=== PATIENT | male | born 1950 | race Caucasian/White ===

== ENCOUNTER 2017-05-22 08:48 | Inpatient (IN) | payer OTHER ==
[2017-05-22 09:25] VITALS: BMI 26.6
--- NOTE | 2017-05-22 17:33 | HP ---
COWS - Scale Resting Pulse: 2= [place] 101-120 Sweatin= Chills/Flushing Restless Observation: 3= Extraneous Movement Pupil Size: 0= Normal to Room Light Bone or Joint Aches: 4=Acute Joint/Muscle Pain Runny Nose/ Eye Tearin= Runny Nose/Eyes GI Upset > 30mins: 2= Nausea/Diarrhea Tremor Observation: 2= Slight Tremor Visible Yawning Observation: 1= 1-2x During Session Anxiety or Irritability: 2=Irritable/Anxious Goose Flesh Skin: 0=Smooth Skin COWS Score: 19 CIWA Score - CIWA Score Nausea/Vomitin (DIARRHEA) Muscle Tremors: 4-Moderate,w/Arms Extend Anxiety: 4-Mod. Anxious/Guarded Agitation: 3 Paroxysmal Sweats: 1-Minimal Palms Moist Orientation: 0-Oriented Tacttile Disturbances: 3-Moderate Itch/Numb/Burn Auditory Disturbances: 0-None Visual Disturbances: 0-None Headache: 0-None Present CIWA-Ar Total Score: 18 Admission ROS S - HPI Chief Complaint: DETOX TX FOR OPIATES AND XANAX WITHDRAWAL SX OF NAUSEA AND DIARRHEA, TREMORS WITH LACK OF ENERGY. Allergies/Adverse Reactions: Allergies Allergy/AdvReac Type Severity Reaction Status Date / Time No Known Allergies Allergy Verified 05/22/17 16:58 History of Present Illness: 66 Y/O MALE WITH A HX OF OPIOID AND XANAX DEPENDENCE SEEKING DETOX TX. PT REPORTS WAS ON [facility] AND WAS RAPIDLY DETOXED BUT STARTED WITHDRAWING VERY SEVERELY 2 DAYS AFTER AND WAS TAKEN BY AMBULANCE TO [facility] KEPT OVERNIGHT WITH HYDRATION TX AND REFERRED HERE FOR DETOX. ADDENDUM: DR ZHENG AT THE [facility] PSYCH TEAM CALLED TO REPORT THIS PATIENT WAS CLEARED PSYCHIATRICALLY. NO S/I BUT PT IN NEED OF DETOX DUE TO WITHDRAWAL SX. Exam Limitations: No Limitations - Ebola screening Have you traveled outside of the country in the last 21 days: No Have you had contact with anyone from an Ebola affected area: No Have you been sick,other than usual withdrawal symptoms: No - Review of Systems Constitutional: Chills, Loss of Appetite, Night Sweats, Changes in sleep EENT: reports: Blurred Vision (WEARS GLASSES), Dental Problems (MISSING TEETH), Other (DRY EYES) Respiratory: reports: Cough, Productive cough (YELLOW PHLEGM) Cardiac: reports: Lightheadedness GI: reports: Constipated, Diarrhea, Nausea, Poor Appetite, Poor Fluid Intake, Vomiting, Indigestion : reports: Dysuria Musculoskeletal: reports: Joint Pain, Muscle Pain Integumentary: reports: Bruising (LEFT FOREARM DUE TO FALL FROM CHAIR AT HOME LAST WEEK.), Rash (FUNGAL INFECTION RIGHT BIG TOE) Neuro: reports: Headache, Tremors, Unsteady Gait Endocrine: reports: No Symptoms Reported Psychiatric: reports: Orientated x3, Anxious, Depressed Other Systems: Reviewed and Negative Patient History - Patient Medical History Hx Anemia: No Hx Asthma: No Hx Chronic Obstructive Pulmonary Disease (COPD): No Hx Cardiac Disorders: No Hx Hypertension: No Hx Hypercholesterolemia: No HX Cerebrovascular Accident: No Hx Seizures: No Hx Diabetes: No Hx Gastrointestinal Disorders: Yes (GERD-NO MED) Hx Genitourinary Disorders: No Hx Sexually Transmitted Disorders: No Hx Renal Disease (ESRD): No Hx Thyroid Disease: No Hx Human Immunodeficiency Virus (HIV): No (NEGATIVE HX) Hx Hepatitis C: No (NEGATIVE) Hx Depression: Yes (ATIVAN WHEN YOUNGER) Hx Suicide Attempt: No (DENIES) Hx Schizophrenia: No Other Medical History: PANIC ATTACKS WHEN YOUNGER - Patient Surgical History Past Surgical History: Yes Hx Neurologic Surgery: No Hx Cataract Extraction: No Hx Cardiac Surgery: No Hx Lung Surgery: No Hx Breast Surgery: No Hx Breast Biopsy: No Hx Abdominal Surgery: No Hx Appendectomy: No Hx Cholecystectomy: No Hx Genitourinary Surgery: No Hx Orthopedic Surgery: No Anesthesia Reaction: No - PPD History Previous Implant?: Yes Documented Results: Negative w/o proof Implanted On Prior [facility] Admission?: No PPD to be Administered?: Yes - Reproductive History Patient is a Female of Child Bearing Age (11 -55 yrs old): No (MALE) Patient : (N/A) - Smoking Cessation Smoking history: Never smoked - Substance & Tx. History Hx Alcohol Use: Yes (IN REMISSION 15 YRS SOBER) Hx Substance Use: Yes (RX METHADONE/ STREETXANAX) Substance Use Type: Opiates, Tranquilizers Hx Substance Use Treatment: Yes - Substances Abused Alprazolam (Xanax) Route: Oral Frequency: Daily Amount used: 2-3mg Age of first use: 56 Date of Last Use: 05/21/17 Family Disease History - Family Disease History Family Disease History: Other: Father (HTN;IL-) Admission Physical Exam [facility] - Vital Signs Vital Signs: Vital Signs - 24 hr 05/22/17 09:23 Temperature 97.1 F L Pulse Rate 115 H Respiratory 20 Rate Blood Pressure 143/86 - Physical General Appearance: Yes: Moderate Distress, Irritable, Anxious, Other (FATIGUE) HEENTM: Yes: EOMI, Normocephalic, IDALIA, Pharynx Normal, Nasal Congestion, Rhinorrhea Respiratory: Yes: Chest Non-Tender, Lungs Clear, Normal Breath Sounds, No Respiratory Distress Neck: Yes: Supple, Trachea in good position Breast: Yes: Breast Exam Deferred Cardiology: Yes: Regular Rhythm, Regular Rate, S1, S2 Abdominal: Yes: Normal Bowel Sounds, Non Tender, Soft Genitourinary: Yes: Other (N/C) Musculoskeletal: Yes: full range of Motion, Gait Steady Extremities: Yes: Tremors 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: 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: 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 NML intact, Fully Oriented, Alert, Motor Strength 5/5 Integumentary: Yes: Dry, Warm Lymphatic: Yes: Within Normal Limits - Diagnostic (1) Opioid dependence with withdrawal Current Visit: Yes Status: Acute (2) Sedative, hypnotic or anxiolytic dependence with withdrawal, uncomplicated Current Visit: Yes Status: Acute (3) GERD (gastroesophageal reflux disease) Current Visit: Yes Status: Chronic Qualifiers: Esophagitis presence: without esophagitis Qualified Code(s): K21.9 - Gastro-esophageal reflux disease without esophagitis (4) Depression with anxiety Current Visit: Yes Status: Chronic Cleared for Admission [facility] - Detox or Rehab [facility] Level of Care: Medically Managed Detox Regimen/Protocol: Methadone/Valium [facility] Breath Alcohol Content Breath Alcohol Content: 0 Urine Drug Screen - Results Drug Screen Negative: No Urine Drug Screen Results: BZO-Benzodiazepines, MTD-Methadone
[2017-05-22] MEDS ORDERED: P-EPHED 60MG/TRIPROLIDI 2.5MG TABLET PO PRN (17:59)
[2017-05-22] MEDS ORDERED: MENTHOL/PHENOL 1 EACH UD MM PRN (17:59)
[2017-05-22] MEDS ORDERED: LOPERAMIDE HCL 2 MG CAPSULE PO PRN (17:59)
[2017-05-22] MEDS ORDERED: MAGNESIUM CITRATE 300 ML BOTTLE PO PRN (17:59)
[2017-05-22] MEDS ORDERED: MAG HYDROX/AL HYDROX/SIMETH 30 ML UNIT-DOSE CUP PO PRN (17:59)
[2017-05-22] MEDS ORDERED: MAGNESIUM HYDROX 2400MG/30ML ORAL SUSPENSION 30 ML CUP PO PRN (17:59)
[2017-05-22] MEDS ORDERED: diazePAM 5 MG TABLET PO ONE (17:59)
[2017-05-22] MEDS ORDERED: ONDANSETRON *ODT* 4 MG TABLET SL PRN (18:03)
[2017-05-22] MEDS ORDERED: METHADONE HCL 10 MG TABLET (FOR DETOX USE ONLY) PO ONE ×2 (18:45→23:00)
[2017-05-22] MEDS: THIAMINE HCL 100 MG TABLET (FP) PO SCH (21:36)
[2017-05-22] MEDS: ASPIRIN 81 MG CHEWABLE TABLETS PO SCH (21:42)
[2017-05-22] MEDS ORDERED: METHADONE HCL 10 MG TABLET (FOR DETOX USE ONLY) ONE (22:01)
[2017-05-22] MEDS: diphenhydrAMINE HCL 50 MG CAPSULE PO PRN (22:44)
[2017-05-22] MEDS: diazePAM 5 MG TABLET PO SCH (22:44)
[2017-05-23] MEDS: diazePAM 5 MG TABLET PO SCH ×3 (05:43→22:40)
[2017-05-23] MEDS: guaiFENesin/D-METHORPHAN HB 10 ML UNIT-DOSE CUPS PO PRN ×3 (05:43→21:14)
[2017-05-23] MEDS: ACETAMINOPHEN 325 MG TABLET (FP) PO PRN (09:05)
[2017-05-23] MEDS: ASPIRIN 81 MG CHEWABLE TABLETS PO SCH (09:25)
[2017-05-23] MEDS: PRENATAL VITAMINS W/ FOLIC ACID TABLET (FP) PO SCH (09:25)
[2017-05-23] MEDS: diazePAM 5 MG TABLET PO PRN ×2 (09:25→17:28)
[2017-05-23] MEDS: PANTOPRAZOLE 40 MG TABLET (FP) PO SCH (09:25)
[2017-05-23] MEDS ORDERED: METHADONE HCL 10 MG TABLET (FOR DETOX USE ONLY) PO SCH (10:00)
[2017-05-23 10:16] LABS: MCH 27.6 pg (25.7-33.7); MCHC 32.7 g/dl (32.0-35.9); MEAN CELL VOLUME 84.4 fl (80-96); MEAN PLT VOLUME 8.8 fl (7.5-11.1); PLATELET COUNT 239 K/MM3 (134-434); WHITE BLOOD COUNT 9.8 K/mm3 (4.0-10.0)
[2017-05-23 10:45] LABS: ALBUMIN 3.2 g/dl (3.4-5.0); ALK PHOS 38 U/L (45-117); ANION GAP 8 (8-16); BILIRUBIN,TOTAL 0.5 mg/dL (0.2-1.0); CALCIUM 8.4 mg/dL (8.5-10.1); CO2 27 mmol/L (21-32); GLUCOSE,RANDOM 88 mg/dL (74-106); SGOT/AST 9 U/L (15-37); SGPT/ALT 13 U/L (12-78); TOT PROT 6.6 g/dl (6.4-8.2)
--- NOTE | 2017-05-23 11:20 | PN ---
[facility] CIWA - CIWA Score Nausea/Vomitin-No Nausea/No Vomiting Muscle Tremors: 4-Moderate,w/Arms Extend Anxiety: 4-Mod. Anxious/Guarded Agitation: 4-Moderately Restless Paroxysmal Sweats: 1-Minimal Palms Moist Orientation: 0-Oriented Tacttile Disturbances: 3-Moderate Itch/Numb/Burn Auditory Disturbances: 0-None Visual Disturbances: 0-None Headache: 3-Moderate CIWA-Ar Total Score: 19 BHS COWS - Scale Resting Pulse: 2= [place] 101-120 Sweatin= Chills/Flushing Restless Observation: 3= Extraneous Movement Pupil Size: 0= Normal to Room Light Bone or Joint Aches: 4=Acute Joint/Muscle Pain Runny Nose/ Eye Tearin= Nasal Congestion GI Upset > 30mins: 2= Nausea/Diarrhea Tremor Observation of Outstretched Hands: 2= Slight Tremor Visible Yawning Observation: 1= 1-2x During Session Anxiety or Irritability: 2=Irritable/Anxious Goose Flesh Skin: 0=Smooth Skin COWS Score: 18 [facility] Progress Note (SOAP) Subjective: ANXIETY,SWEATS/CHILLS,HEADACHE,DIARRHEA, TREMORS,INTERMITTENT SLEEP Objective: 05/23/17 11:19 Vital Signs Temperature 97.2 F L 05/23/17 09:32 Pulse Rate 133 H 05/23/17 09:32 Respiratory Rate 18 05/23/17 09:32 Blood Pressure 156/83 05/23/17 09:32 O2 Sat by Pulse Oximetry (%) Laboratory Last Values WBC 9.8 K/mm3 (4.0-10.0) 05/23/17 07:00 RBC 4.55 M/mm3 (4.00-5.60) 05/23/17 07:00 Hgb 12.6 GM/dL (11.7-16.9) 05/23/17 07:00 Hct 38.4 % (35.4-49) 05/23/17 07:00 MCV 84.4 fl (80-96) 05/23/17 07:00 MCH 27.6 pg (25.7-33.7) 05/23/17 07:00 MCHC 32.7 g/dl (32.0-35.9) 05/23/17 07:00 RDW 15.0 % (11.9-15.9) 05/23/17 07:00 Plt Count 239 K/MM3 (134-434) 05/23/17 07:00 MPV 8.8 fl (7.5-11.1) 05/23/17 07:00 Sodium 145 mmol/L (136-145) 05/23/17 07:00 Potassium 4.1 mmol/L (3.5-5.1) 05/23/17 07:00 Chloride 110 mmol/L (98-107) H 05/23/17 07:00 Carbon Dioxide 27 mmol/L (21-32) 05/23/17 07:00 Anion Gap 8 (8-16) 05/23/17 07:00 BUN 18 mg/dL (7-18) 05/23/17 07:00 Creatinine 1.0 mg/dL (0.7-1.3) 05/23/17 07:00 Creat Clearance w eGFR > 60 (>60) 05/23/17 07:00 Random Glucose 88 mg/dL (74-106) 05/23/17 07:00 Calcium 8.4 mg/dL (8.5-10.1) L 05/23/17 07:00 Total Bilirubin 0.5 mg/dL (0.2-1.0) 05/23/17 07:00 AST 9 U/L (15-37) L 05/23/17 07:00 ALT 13 U/L (12-78) 05/23/17 07:00 Alkaline Phosphatase 38 U/L (45-117) L 05/23/17 07:00 Total Protein 6.6 g/dl (6.4-8.2) 05/23/17 07:00 Albumin 3.2 g/dl (3.4-5.0) L 05/23/17 07:00 OTHER LABS PENDING Assessment: 05/23/17 11:19 WITHDRAWAL SX Plan: CONTINUE DETOX IMODIUM PRN INCREASE PO FLUIDS TOLERATED
--- NOTE | 2017-05-23 11:27 | CONSULT ---
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 Smoking Cessation. Smoking history: Never smoked. - Substance & Tx. History. Hx Alcohol Use: Yes (IN REMISSION 15 YRS SOBER). Hx Substance Use: Yes (RX METHADONE/ STREETXANAX). Substance Use Type: Opiates, Tranquilizers. Hx Substance Use Treatment: Yes. - Substances Abused. Alprazolam (Xanax). Route: Oral. Frequency: Daily. Amount used: 2-3mg. Age of first use: 56. Date of Last Use: 05/21/17 Medical History: GERD and arthritis. Psychiatric History: Patient denies history of psychiatric hospitalizations.Used to be on methadone maintenance (60 mg/day) at the [facility].Heavily involved in buying xanax from the streets.No history of psychiatric OPD care.Denies history of suicide attempts. Physical/Sexual Abuse/Trauma History: Patient denies. Additional Comment: Urine Drug Screen Results: BZO-Benzodiazepines, MTD- Methadone.Noted. Mental Status Exam - Mental Status Exam Alert and Oriented to: Time, Place, Person Cognitive Function: Good Patient Appearance: Well Groomed Mood: Nervous, Apprehensive Affect: Mood Congruent Patient Behavior: Fatigued, Appropriate, Cooperative Speech Pattern: Clear Voice Loudness: Normal Thought Process: Intact, Goal Oriented Thought Disorder: Not Present Hallucinations: Denies Suicidal Ideation: Denies Homicidal Ideation: Denies Insight/Judgement: Poor Sleep: Poorly, Difficulty falling asleep Appetite: Good Muscle strength/Tone: Normal Gait/Station: Normal Psychiatric Findings - Problem List ([place] 1, 2,3) (1) Opioid dependence with withdrawal Current Visit: Yes Status: Acute (2) Sedative, hypnotic or anxiolytic dependence with withdrawal, uncomplicated Current Visit: Yes Status: Acute (3) Substance induced mood disorder Current Visit: Yes Status: Acute (4) GERD (gastroesophageal reflux disease) Current Visit: Yes Status: Chronic Qualifiers: Esophagitis presence: without esophagitis Qualified Code(s): K21.9 - Gastro-esophageal reflux disease without esophagitis (5) Insomnia Current Visit: Yes Status: Acute - Initial Treatment Plan Initial Treatment Plan: Psychoeducation.Detoxification.Ambien 5 mg po hs prn.Patient made aware of potential for parasomnias.
[2017-05-23] MEDS ORDERED: cloNIDine HCL 0.1 MG TABLET PO ONE (12:00)
[2017-05-23 17:35] LABS: URINE APPEARANCE SLCLOUDY; URINE BILIRUBIN NEGATIVE (NEGATIVE); URINE BLOOD NEGATIVE (NEGATIVE); URINE COLOR YELLOW; URINE GLUCOSE (UA) NEGATIVE (NEGATIVE); URINE KETONE TRACE (NEGATIVE); URINE LEUK ESTERASE NEGATIVE (NEGATIVE); URINE NITRITE NEGATIVE (NEGATIVE); URINE PROTEIN NEGATIVE (NEGATIVE); URINE UROBILINOGEN NEGATIVE mg/dL (0.2-1.0)
[2017-05-23] MEDS: THIAMINE HCL 100 MG TABLET (FP) PO SCH (22:40)
[2017-05-23] MEDS: cloNIDine HCL 0.1 MG TABLET PO SCH (22:41)
[2017-05-23] MEDS: ZOLPIDEM TARTRATE 5 MG TABLET PO PRN (22:44)
[2017-05-24] MEDS: ACETAMINOPHEN 325 MG TABLET (FP) PO PRN ×3 (05:47→17:32)
[2017-05-24] MEDS: guaiFENesin/D-METHORPHAN HB 10 ML UNIT-DOSE CUPS PO PRN ×3 (05:48→19:19)
[2017-05-24] MEDS: diazePAM 5 MG TABLET PO PRN ×2 (05:48→17:09)
[2017-05-24] MEDS: PRENATAL VITAMINS W/ FOLIC ACID TABLET (FP) PO SCH (10:51)
[2017-05-24] MEDS: diazePAM 5 MG TABLET PO SCH ×2 (10:51→22:47)
[2017-05-24] MEDS: PANTOPRAZOLE 40 MG TABLET (FP) PO SCH (10:51)
[2017-05-24] MEDS: cloNIDine HCL 0.1 MG TABLET PO SCH ×2 (10:51→22:47)
[2017-05-24] MEDS: ASPIRIN 81 MG CHEWABLE TABLETS PO SCH (10:51)
[2017-05-24] MEDS: METHADONE HCL 5 MG TABLET (FOR DETOX USE ONLY) PO SCH (11:08)
--- NOTE | 2017-05-24 12:22 | PN ---
[facility] CIWA - CIWA Score Nausea/Vomitin-No Nausea/No Vomiting Muscle Tremors: 4-Moderate,w/Arms Extend Anxiety: 4-Mod. Anxious/Guarded Agitation: 4-Moderately Restless Paroxysmal Sweats: 1-Minimal Palms Moist Orientation: 0-Oriented Tacttile Disturbances: 3-Moderate Itch/Numb/Burn Auditory Disturbances: 0-None Visual Disturbances: 0-None Headache: 1-Very Mild CIWA-Ar Total Score: 17 BHS COWS - Scale Resting Pulse: 1= [place] 81-100 Sweatin= Chills/Flushing Restless Observation: 3= Extraneous Movement Pupil Size: 2= Moderately Dilated Bone or Joint Aches: 4=Acute Joint/Muscle Pain Runny Nose/ Eye Tearin= Nasal Congestion GI Upset > 30mins: 1= Stomach Cramp Tremor Observation of Outstretched Hands: 2= Slight Tremor Visible Yawning Observation: 1= 1-2x During Session Anxiety or Irritability: 2=Irritable/Anxious Goose Flesh Skin: 0=Smooth Skin COWS Score: 18 S Progress Note (SOAP) Subjective: ANXIETY,IRRITABILITY, RESTLESSNESS,NASAL CONGESTIONS, FATIGUE. Objective: 05/24/17 12:21 Vital Signs Temperature 96.4 F L 05/24/17 10:16 Pulse Rate 100 H 05/24/17 10:16 Respiratory Rate 18 05/24/17 10:16 Blood Pressure 139/80 05/24/17 10:16 O2 Sat by Pulse Oximetry (%) Laboratory Last Values WBC 9.8 K/mm3 (4.0-10.0) 05/23/17 07:00 RBC 4.55 M/mm3 (4.00-5.60) 05/23/17 07:00 Hgb 12.6 GM/dL (11.7-16.9) 05/23/17 07:00 Hct 38.4 % (35.4-49) 05/23/17 07:00 MCV 84.4 fl (80-96) 05/23/17 07:00 MCH 27.6 pg (25.7-33.7) 05/23/17 07:00 MCHC 32.7 g/dl (32.0-35.9) 05/23/17 07:00 RDW 15.0 % (11.9-15.9) 05/23/17 07:00 Plt Count 239 K/MM3 (134-434) 05/23/17 07:00 MPV 8.8 fl (7.5-11.1) 05/23/17 07:00 Sodium 145 mmol/L (136-145) 05/23/17 07:00 Potassium 4.1 mmol/L (3.5-5.1) 05/23/17 07:00 Chloride 110 mmol/L (98-107) H 05/23/17 07:00 Carbon Dioxide 27 mmol/L (21-32) 05/23/17 07:00 Anion Gap 8 (8-16) 05/23/17 07:00 BUN 18 mg/dL (7-18) 05/23/17 07:00 Creatinine 1.0 mg/dL (0.7-1.3) 05/23/17 07:00 Creat Clearance w eGFR > 60 (>60) 05/23/17 07:00 Random Glucose 88 mg/dL (74-106) 05/23/17 07:00 Calcium 8.4 mg/dL (8.5-10.1) L 05/23/17 07:00 Total Bilirubin 0.5 mg/dL (0.2-1.0) 05/23/17 07:00 AST 9 U/L (15-37) L 05/23/17 07:00 ALT 13 U/L (12-78) 05/23/17 07:00 Alkaline Phosphatase 38 U/L (45-117) L 05/23/17 07:00 Total Protein 6.6 g/dl (6.4-8.2) 05/23/17 07:00 Albumin 3.2 g/dl (3.4-5.0) L 05/23/17 07:00 Urine Color Yellow 05/23/17 14:00 Urine Appearance Slcloudy 05/23/17 14:00 Urine pH 5.0 (5.0-8.0) 05/23/17 14:00 Ur Specific [place] 1.020 (1.005-1.025) 05/23/17 14:00 Urine Protein Negative (NEGATIVE) 05/23/17 14:00 Urine Glucose (UA) Negative (NEGATIVE) 05/23/17 14:00 Urine Ketones Trace (NEGATIVE) H 05/23/17 14:00 Urine Blood Negative (NEGATIVE) 05/23/17 14:00 Urine Nitrite Negative (NEGATIVE) 05/23/17 14:00 Urine Bilirubin Negative (NEGATIVE) 05/23/17 14:00 Urine Urobilinogen Negative mg/dL (0.2-1.0) 05/23/17 14:00 Ur Leukocyte Esterase Negative (NEGATIVE) 05/23/17 14:00 RPR Titer Nonreactive (NONREACTIVE) 05/23/17 07:00 Assessment: 05/24/17 12:21 WITHDRAWAL SX Plan: CONTINUE DETOX
--- NOTE | 2017-05-24 12:42 | EKG ---
Test Reason : Blood Pressure : / mmHG Vent. Rate : 078 BPM Atrial Rate : 078 BPM P-R Int : 170 ms QRS Dur : 086 ms QT Int : 380 ms P-R-T Axes : 040 022 040 degrees QTc Int : 433 ms SINUS RHYTHM WITH PREMATURE ATRIAL COMPLEXES OTHERWISE NORMAL ECG WHEN COMPARED WITH ECG OF 22-MAY-2017 20:41, PREMATURE ATRIAL COMPLEXES ARE NOW PRESENT Confirmed by NUNO ALSTON, GRAHAM ([id number]) on 05/24/2017 12:42:41 PM Referred By: Confirmed By:GRAHAM REINA MD
[2017-05-24] MEDS: ZOLPIDEM TARTRATE 5 MG TABLET PO PRN (22:47)
[2017-05-24] MEDS: THIAMINE HCL 100 MG TABLET (FP) PO SCH (22:47)
[2017-05-25] MEDS: guaiFENesin/D-METHORPHAN HB 10 ML UNIT-DOSE CUPS PO PRN ×2 (05:41→15:36)
[2017-05-25] MEDS: diazePAM 5 MG TABLET PO PRN ×2 (05:41→16:58)
[2017-05-25] MEDS: ACETAMINOPHEN 325 MG TABLET (FP) PO PRN (05:42)
[2017-05-25] MEDS: PANTOPRAZOLE 40 MG TABLET (FP) PO SCH (10:35)
[2017-05-25] MEDS: METHADONE HCL 5 MG TABLET (FOR DETOX USE ONLY) PO SCH (10:35)
[2017-05-25] MEDS: cloNIDine HCL 0.1 MG TABLET PO SCH ×2 (10:35→22:33)
[2017-05-25] MEDS: diazePAM 5 MG TABLET PO SCH ×2 (10:35→22:33)
[2017-05-25] MEDS: PRENATAL VITAMINS W/ FOLIC ACID TABLET (FP) PO SCH (10:35)
[2017-05-25] MEDS: ASPIRIN 81 MG CHEWABLE TABLETS PO SCH (10:35)
[2017-05-25] MEDS: IBUPROFEN 400 MG TABLET (FP) PO PRN (10:38)
--- NOTE | 2017-05-25 11:25 | PN ---
S Progress Note (SOAP) Subjective: ANXIETY,SWEATS,HEADACHES Objective: 05/25/17 11:24 Vital Signs Temperature 98.3 F 05/25/17 09:07 Pulse Rate 89 05/25/17 09:07 Respiratory Rate 18 05/25/17 09:07 Blood Pressure 147/76 05/25/17 09:07 O2 Sat by Pulse Oximetry (%) Laboratory Last Values WBC 9.8 K/mm3 (4.0-10.0) 05/23/17 07:00 RBC 4.55 M/mm3 (4.00-5.60) 05/23/17 07:00 Hgb 12.6 GM/dL (11.7-16.9) 05/23/17 07:00 Hct 38.4 % (35.4-49) 05/23/17 07:00 MCV 84.4 fl (80-96) 05/23/17 07:00 MCH 27.6 pg (25.7-33.7) 05/23/17 07:00 MCHC 32.7 g/dl (32.0-35.9) 05/23/17 07:00 RDW 15.0 % (11.9-15.9) 05/23/17 07:00 Plt Count 239 K/MM3 (134-434) 05/23/17 07:00 MPV 8.8 fl (7.5-11.1) 05/23/17 07:00 Sodium 145 mmol/L (136-145) 05/23/17 07:00 Potassium 4.1 mmol/L (3.5-5.1) 05/23/17 07:00 Chloride 110 mmol/L (98-107) H 05/23/17 07:00 Carbon Dioxide 27 mmol/L (21-32) 05/23/17 07:00 Anion Gap 8 (8-16) 05/23/17 07:00 BUN 18 mg/dL (7-18) 05/23/17 07:00 Creatinine 1.0 mg/dL (0.7-1.3) 05/23/17 07:00 Creat Clearance w eGFR > 60 (>60) 05/23/17 07:00 Random Glucose 88 mg/dL (74-106) 05/23/17 07:00 Calcium 8.4 mg/dL (8.5-10.1) L 05/23/17 07:00 Total Bilirubin 0.5 mg/dL (0.2-1.0) 05/23/17 07:00 AST 9 U/L (15-37) L 05/23/17 07:00 ALT 13 U/L (12-78) 05/23/17 07:00 Alkaline Phosphatase 38 U/L (45-117) L 05/23/17 07:00 Total Protein 6.6 g/dl (6.4-8.2) 05/23/17 07:00 Albumin 3.2 g/dl (3.4-5.0) L 05/23/17 07:00 Urine Color Yellow 05/23/17 14:00 Urine Appearance Slcloudy 05/23/17 14:00 Urine pH 5.0 (5.0-8.0) 05/23/17 14:00 Ur Specific [place] 1.020 (1.005-1.025) 05/23/17 14:00 Urine Protein Negative (NEGATIVE) 05/23/17 14:00 Urine Glucose (UA) Negative (NEGATIVE) 05/23/17 14:00 Urine Ketones Trace (NEGATIVE) H 05/23/17 14:00 Urine Blood Negative (NEGATIVE) 05/23/17 14:00 Urine Nitrite Negative (NEGATIVE) 05/23/17 14:00 Urine Bilirubin Negative (NEGATIVE) 05/23/17 14:00 Urine Urobilinogen Negative mg/dL (0.2-1.0) 05/23/17 14:00 Ur Leukocyte Esterase Negative (NEGATIVE) 05/23/17 14:00 RPR Titer Nonreactive (NONREACTIVE) 05/23/17 07:00 Assessment: 05/25/17 11:25 WITHDRAWAL SX Plan: CONTINUE DETOX
--- NOTE | 2017-05-25 11:36 | EKG ---
Test Reason : Blood Pressure : / mmHG Vent. Rate : 094 BPM Atrial Rate : 094 BPM P-R Int : 162 ms QRS Dur : 072 ms QT Int : 342 ms P-R-T Axes : 035 -03 048 degrees QTc Int : 427 ms NORMAL SINUS RHYTHM MODERATE VOLTAGE CRITERIA FOR LVH, MAY BE NORMAL VARIANT NONSPECIFIC ST ABNORMALITY ABNORMAL ECG NO PREVIOUS ECGS AVAILABLE Confirmed by GERMAINE GARCIA MD ([id number]) on 05/25/2017 11:35:46 AM Referred By: Confirmed By:GERMAINE GARCIA MD
[2017-05-25] MEDS: ZOLPIDEM TARTRATE 5 MG TABLET PO PRN (22:33)
[2017-05-25] MEDS: THIAMINE HCL 100 MG TABLET (FP) PO SCH (22:33)
[2017-05-26] MEDS: IBUPROFEN 400 MG TABLET (FP) PO PRN ×2 (04:38→19:01)
[2017-05-26] MEDS ORDERED: METHADONE HCL 10 MG TABLET (FOR DETOX USE ONLY) PO SCH (10:00)
[2017-05-26] MEDS ORDERED: diazePAM 5 MG TABLET PO SCH (10:00)
[2017-05-26] MEDS: ASPIRIN 81 MG CHEWABLE TABLETS PO SCH (10:10)
[2017-05-26] MEDS: cloNIDine HCL 0.1 MG TABLET PO SCH ×2 (10:11→22:37)
[2017-05-26] MEDS: PANTOPRAZOLE 40 MG TABLET (FP) PO SCH (10:11)
[2017-05-26] MEDS: PRENATAL VITAMINS W/ FOLIC ACID TABLET (FP) PO SCH (10:11)
[2017-05-26] MEDS ORDERED: hydrOXYzine PAMOATE 50 MG CAPSULE (FP) PO PRN (11:02)
--- NOTE | 2017-05-26 11:46 | PN ---
S Progress Note (SOAP) Subjective: ANXIETY,IRRITABILITY,SWEATS,INTERMITTENT SLEEP Objective: 05/26/17 11:45 Laboratory Last Values WBC 9.8 K/mm3 (4.0-10.0) 05/23/17 07:00 RBC 4.55 M/mm3 (4.00-5.60) 05/23/17 07:00 Hgb 12.6 GM/dL (11.7-16.9) 05/23/17 07:00 Hct 38.4 % (35.4-49) 05/23/17 07:00 MCV 84.4 fl (80-96) 05/23/17 07:00 MCH 27.6 pg (25.7-33.7) 05/23/17 07:00 MCHC 32.7 g/dl (32.0-35.9) 05/23/17 07:00 RDW 15.0 % (11.9-15.9) 05/23/17 07:00 Plt Count 239 K/MM3 (134-434) 05/23/17 07:00 MPV 8.8 fl (7.5-11.1) 05/23/17 07:00 Sodium 145 mmol/L (136-145) 05/23/17 07:00 Potassium 4.1 mmol/L (3.5-5.1) 05/23/17 07:00 Chloride 110 mmol/L (98-107) H 05/23/17 07:00 Carbon Dioxide 27 mmol/L (21-32) 05/23/17 07:00 Anion Gap 8 (8-16) 05/23/17 07:00 BUN 18 mg/dL (7-18) 05/23/17 07:00 Creatinine 1.0 mg/dL (0.7-1.3) 05/23/17 07:00 Creat Clearance w eGFR > 60 (>60) 05/23/17 07:00 Random Glucose 88 mg/dL (74-106) 05/23/17 07:00 Calcium 8.4 mg/dL (8.5-10.1) L 05/23/17 07:00 Total Bilirubin 0.5 mg/dL (0.2-1.0) 05/23/17 07:00 AST 9 U/L (15-37) L 05/23/17 07:00 ALT 13 U/L (12-78) 05/23/17 07:00 Alkaline Phosphatase 38 U/L (45-117) L 05/23/17 07:00 Total Protein 6.6 g/dl (6.4-8.2) 05/23/17 07:00 Albumin 3.2 g/dl (3.4-5.0) L 05/23/17 07:00 Urine Color Yellow 05/23/17 14:00 Urine Appearance Slcloudy 05/23/17 14:00 Urine pH 5.0 (5.0-8.0) 05/23/17 14:00 Ur Specific [place] 1.020 (1.005-1.025) 05/23/17 14:00 Urine Protein Negative (NEGATIVE) 05/23/17 14:00 Urine Glucose (UA) Negative (NEGATIVE) 05/23/17 14:00 Urine Ketones Trace (NEGATIVE) H 05/23/17 14:00 Urine Blood Negative (NEGATIVE) 05/23/17 14:00 Urine Nitrite Negative (NEGATIVE) 05/23/17 14:00 Urine Bilirubin Negative (NEGATIVE) 05/23/17 14:00 Urine Urobilinogen Negative mg/dL (0.2-1.0) 05/23/17 14:00 Ur Leukocyte Esterase Negative (NEGATIVE) 05/23/17 14:00 RPR Titer Nonreactive (NONREACTIVE) 05/23/17 07:00 Vital Signs 05/26/17 05/26/17 05/26/17 04:05 06:42 10:00 Temperature 97.6 F 97.2 F L Pulse Rate 73 85 Respiratory 18 18 18 Rate Blood Pressure 153/85 134/81 Assessment: 05/26/17 11:46 WITHDRAWAL SX Plan: CONTINUE DETOX
[2017-05-26] MEDS: THIAMINE HCL 100 MG TABLET (FP) PO SCH (22:37)
[2017-05-26] MEDS: ZOLPIDEM TARTRATE 5 MG TABLET PO PRN (22:37)
[2017-05-26] MEDS: diphenhydrAMINE HCL 50 MG CAPSULE PO PRN (22:38)
[2017-05-27] MEDS: IBUPROFEN 400 MG TABLET (FP) PO PRN (05:31)
[2017-05-27] MEDS ORDERED: METHADONE HCL 5 MG TABLET (FOR DETOX USE ONLY) PO SCH (06:00)
[2017-05-27] MEDS: cloNIDine HCL 0.1 MG TABLET PO SCH (10:32)
[2017-05-27] MEDS: PANTOPRAZOLE 40 MG TABLET (FP) PO SCH (10:32)
[2017-05-27] MEDS: PRENATAL VITAMINS W/ FOLIC ACID TABLET (FP) PO SCH (10:32)
[2017-05-27] MEDS: ASPIRIN 81 MG CHEWABLE TABLETS PO SCH (10:32)
[2017-05-27 11:05] VITALS: BP 157/78; PULSE 98; TEMP 97.3
--- NOTE | 2017-05-27 19:22 | DS ---
[facility] Detox Discharge Summary Admission Date: 05/22/17 Discharge Date: 05/27/17 - History Present History: Opioid Dependence, Sedative Dependence Additional Comments: PATIENT ELECTING TO GO HOME AT THIS TIME. TRANSPORTATION ARRANGED BY NURSING EMAIL PRODUCTION SPECIALIST [employer] FOR PATIENT TO BE TAKEN FROM HOSPITAL DIRECTLY TO HIS HOME. PATIENT ADVISED TO FOLLOW-UP WITH HIS QUILT MAKER IN THE [facility] (PATIENT UNABLE TO RECALL QUILT MAKER'S NAME AT THIS TIME) FOR MEDICAL EVALUATION AFTER DISCHARGE FROM DETOX. PATIENT ALSO ADVISED TO CONSIDER LOCAL OUTPATIENT 12 -STEP / NA PROGRAMS FOR AFTERCARE AFTER DISCHARGE FROM DETOX. PATIENT WAS DISCHARGED FROM UNIT IN STABLE MEDICAL CONDITION. Pertinent Past History: Depression / Anxiety, G.E.R.D., Insomnia. - Physical Exam Results Vital Signs: Vital Signs Temperature 97.3 F L 05/27/17 11:05 Pulse Rate 98 H 05/27/17 11:05 Respiratory Rate 18 05/27/17 11:05 Blood Pressure 157/78 05/27/17 11:05 O2 Sat by Pulse Oximetry (%) Pertinent Admission Physical Exam Findings: WITHDRAWAL SYMPTOMS. Laboratory Tests 05/23/17 05/23/17 05/23/17 07:00 07:00 07:00 WBC 9.8 RBC 4.55 Hgb 12.6 Hct 38.4 MCV 84.4 MCH 27.6 MCHC 32.7 RDW 15.0 Plt Count 239 MPV 8.8 Sodium 145 Potassium 4.1 Chloride 110 H Carbon Dioxide 27 Anion Gap 8 BUN 18 Creatinine 1.0 Creat Clearance w eGFR > 60 Random Glucose 88 Calcium 8.4 L Total Bilirubin 0.5 AST 9 L ALT 13 Alkaline Phosphatase 38 L Total Protein 6.6 Albumin 3.2 L Urine Color Urine Appearance Urine pH Ur Specific [place] Urine Protein Urine Glucose (UA) Urine Ketones Urine Blood Urine Nitrite Urine Bilirubin Urine Urobilinogen Ur Leukocyte Esterase RPR Titer Nonreactive 05/23/17 14:00 WBC RBC Hgb Hct MCV MCH MCHC RDW Plt Count MPV Sodium Potassium Chloride Carbon Dioxide Anion Gap BUN Creatinine Creat Clearance w eGFR Random Glucose Calcium Total Bilirubin AST ALT Alkaline Phosphatase Total Protein Albumin Urine Color Yellow Urine Appearance Slcloudy Urine pH 5.0 Ur Specific [place] 1.020 Urine Protein Negative Urine Glucose (UA) Negative Urine Ketones Trace H Urine Blood Negative Urine Nitrite Negative Urine Bilirubin Negative Urine Urobilinogen Negative Ur Leukocyte Esterase Negative RPR Titer LABS NOTED. - Treatment Hospital Course: Detox Protocol Followed, Detoxed Safely, Responded well, Discharged Condition Good Patient has Accepted a Rehab Referral to: PT ELECTS TO GO HOME. ADVISED TO CONSIDER LOCAL 12-STEP/NA PROGRAMS FOR F/U - Medication Discharge Medications: Ambulatory Orders Aspirin [ASA -] 81 mg PO DAILY 05/22/17 - Diagnosis (1) Insomnia Status: Acute Qualifiers: Insomnia type: unspecified Qualified Code(s): G47.00 - Insomnia, unspecified (2) Opioid dependence with withdrawal Status: Acute (3) Sedative, hypnotic or anxiolytic dependence with withdrawal, uncomplicated Status: Acute (4) Substance induced mood disorder Status: Acute (5) Depression with anxiety Status: Chronic (6) GERD (gastroesophageal reflux disease) Status: Chronic Qualifiers: Esophagitis presence: without esophagitis Qualified Code(s): K21.9 - Gastro-esophageal reflux disease without esophagitis - AMA Did Patient Leave Against Medical Advice: No
== END 2017-05-27 12:12 | disposition home or self-care (01) | DRG 897 ==
LOC: YASAS 08:48 → Y3N 19:50
PROVIDERS: ADMIT Internal Medicine Addiction Medicine; ATTEND Internal Medicine Addiction Medicine
PROC: HZ2ZZZZ Detoxification Services for Substance Abuse Treatment (ICD-10-PCS; principal; 2017-05-22)
DX: F19.230 Other psychoactive substance dependence with withdrawal, uncomplicated (principal); F11.23 Opioid dependence with withdrawal; F13.230 Sedative, hypnotic or anxiolytic dependence with withdrawal, uncomplicated; F19.24 Other psychoactive substance dependence with psychoactive substance-induced mood disorder; F41.8 Other specified anxiety disorders; G47.00 Insomnia, unspecified; K21.9 Gastro-esophageal reflux disease without esophagitis
CPT/HCPCS: 36415; 80053; 81003; 85027; 86593; 93005; 93010